=== PATIENT | female | born 1985 | race Caucasian/White ===

== ENCOUNTER 2016-07-23 09:24 | Emergency (ER) | payer OTHER ==
[2016-07-23 09:31] VITALS: RESP 18
--- NOTE | 2016-07-23 11:00 | ED ---
General Adult HPI - General Chief complaint: Psychiatric Symptoms Stated complaint: Mental health Time Seen by Provider: 07/23/16 10:36 Source: patient, RN notes reviewed Mode of arrival: ambulatory Limitations: no limitations - History of Present Illness Initial comments: Patient is a pleasant 30-year-old female presenting to the emergency Department with a pressure. Patient states she is chronically depressed. Patient states yesterday she did have some suicidal thoughts and did abrade her left wrist with a X Cutter. Last tetanus immunization was around 7 years. Patient denies any suicidal ideation at this time. No homicidal thoughts. No hallucinations. No alcohol use. No street drug use however patient has used marijuana in the past. - Related Data Home Medications Medication Instructions Recorded Confirmed Dextroamphetamine/Amphetamine 20 mg PO BID 01/10/16 07/23/16 [Adderall] Ibuprofen [Motrin] 800 mg PO Q6H PRN 01/10/16 07/23/16 Medroxyprogesterone Acetate 150 mg IM Q90D 01/10/16 07/23/16 [Depo-Provera] ARIPiprazole [Abilify] 5 mg PO HS 07/23/16 07/23/16 Venlafaxine HCl [Effexor XR] 150 mg PO HS 07/23/16 07/23/16 Allergies Allergy/AdvReac Type Severity Reaction Status Date / Time amoxicillin Allergy Unknown Verified 07/23/16 09:55 sulfamethoxazole Allergy Unknown Verified 07/23/16 09:55 [From Bactrim] trimethoprim [From Bactrim] Allergy Unknown Verified 07/23/16 09:55 Review of Systems ROS Statement: Those systems with pertinent positive or pertinent negative responses have been documented in the HPI. ROS Other: All systems not noted in ROS Statement are negative. Constitutional: Denies: fever Eyes: Denies: eye pain ENT: Denies: ear pain Respiratory: Denies: dyspnea Cardiovascular: Denies: chest pain Endocrine: Denies: fatigue Gastrointestinal: Denies: abdominal pain Genitourinary: Denies: dysuria Musculoskeletal: Denies: back pain Skin: Denies: rash Psychiatric: Reports: depression Past Medical History Past Medical History: Asthma History of Any Multi-Drug Resistant Organisms: None Reported Past Surgical History: Cholecystectomy Past Psychological History: Anxiety, Depression Smoking Status: Current every day smoker Past Alcohol Use History: None Reported Past Drug Use History: Marijuana General Exam Limitations: no limitations General appearance: alert, in no apparent distress Head exam: Present: atraumatic Eye exam: Present: normal appearance, PERRL ENT exam: Present: normal oropharynx Neck exam: Present: normal inspection Respiratory exam: Present: normal lung sounds bilaterally Cardiovascular Exam: Present: regular rate, normal rhythm GI/Abdominal exam: Present: soft. Absent: tenderness Extremities exam: Present: other (Left wrist abrasions) Neurological exam: Present: alert Psychiatric exam: Present: depressed Skin exam: Present: abrasion (Left wrist) Course Vital Signs 07/23/16 09:28 Temperature 98.2 F Pulse Rate 79 Respiratory 18 Rate Blood Pressure 126/90 O2 Sat by Pulse 100 Oximetry Medical Decision Making - Medical Decision Making Patient was seen by mental health services who did set up outpatient follow-up and recommends discharge. Patient does contract for safety and denies suicidal ideation at this time. Disposition Clinical Impression: Depression Disposition: HOME SELF-CARE Condition: Stable Instructions: Depression (ED), Suicide Prevention for Adults (ED) Additional Instructions: Please follow-up with your doctor in the next day or 2 for recheck. Please follow-up tomorrow for counseling as planned. Return for thoughts of self-harm , worsening symptoms or other concerns. Referrals: Hair Amaro Jr, DO [Primary Care Provider] - 1-2 days
[2016-07-23 13:21] VITALS: BP 128/78; PULSE 80; TEMP 98.6
== END 2016-07-23 13:20 | disposition home or self-care (01) ==
LOC: EC 09:24
DX: F32.9 Major depressive disorder, single episode, unspecified (principal); S60.812A Abrasion of left wrist, initial encounter; F41.9 Anxiety disorder, unspecified; F17.200 Nicotine dependence, unspecified, uncomplicated; Z79.3 Long term (current) use of hormonal contraceptives; Z79.899 Other long term (current) drug therapy; Z88.0 Allergy status to penicillin; Z88.1 Allergy status to other antibiotic agents; X78.8XXA Intentional self-harm by other sharp object, initial encounter
CPT/HCPCS: 82075; 99284

== ENCOUNTER 2017-03-02 21:13 | Emergency (ER) | payer BC, OTHER ==
[2017-03-02 21:43] LABS: Basophils # (A) 0.1 k/uL (0-0.2); Basophils % (A) 1 %; CH 30.2; CHCM 32.7; Eosinophils # (A) 0.3 k/uL (0-0.7); Eosinophils % (A) 3 %; HCT 44.5 % (34.0-46.0); HGB 14.8 gm/dL (11.4-16.0); Luc % (Auto) 1; Lymphocytes # (A) 2.6 k/uL (1.0-4.8); Lymphocytes % (A) 32 %; MCH 30.9 pg (25.0-35.0); MCHC 33.3 g/dL (31.0-37.0); MCV 92.7 fL (80.0-100.0); Monocytes # (A) 0.4 k/uL (0-1.0); Monocytes % (A) 5 %; Neutrophils # (A) 4.8 k/uL (1.3-7.7); Neutrophils % (A) 59 %; RDW 13.3 % (11.5-15.5); WBC 8.2 k/uL (3.8-10.6); WBC (Perox) 8.42
--- NOTE | 2017-03-02 21:54 | ED ---
ENT HPI - General Chief complaint: ENT Stated complaint: Neck Pain/Lump Time Seen by Provider: 03/02/17 21:19 Source: patient, RN notes reviewed Mode of arrival: ambulatory Limitations: no limitations - History of Present Illness Initial comments: This a 31-year-old female presents emergency Department chief complaint of lump on the left side of her neck towards anterior portion. Patient states that this isn't present last 3 days and is painful. She states that is not inhibiting her swelling states it is sore when she swallows. She states it fell more painful and then the lymph node that she's felt the past. She states that she does have a history of mono. Denies any thyroid nodules or thyroid dysfunction. Patient denies headache, dizziness states that she's been exhibiting severe body aches. Patient denies any known fever states that she felt warm and cold. Patient denies any abdominal discomfort denies nausea or constipation. - Related Data Home Medications Medication Instructions Recorded Confirmed Dextroamphetamine/Amphetamine 20 mg PO BID 01/10/16 07/23/16 [Adderall] Ibuprofen [Motrin] 800 mg PO Q6H PRN 01/10/16 07/23/16 Medroxyprogesterone Acetate 150 mg IM Q90D 01/10/16 07/23/16 [Depo-Provera] ARIPiprazole [Abilify] 5 mg PO HS 07/23/16 07/23/16 Venlafaxine HCl [Effexor XR] 150 mg PO HS 07/23/16 07/23/16 Previous Rx's Medication Instructions Recorded Clindamycin HCl 300 mg PO Q6HR #40 cap 03/02/17 Allergies Allergy/AdvReac Type Severity Reaction Status Date / Time amoxicillin Allergy Unknown Verified 07/23/16 09:55 sulfamethoxazole Allergy Unknown Verified 07/23/16 09:55 [From Bactrim] trimethoprim [From Bactrim] Allergy Unknown Verified 07/23/16 09:55 Review of Systems ROS Statement: Those systems with pertinent positive or pertinent negative responses have been documented in the HPI. ROS Other: All systems not noted in ROS Statement are negative. Past Medical History Past Medical History: Asthma History of Any Multi-Drug Resistant Organisms: None Reported Past Surgical History: Cholecystectomy Past Psychological History: Anxiety, Depression Smoking Status: Current every day smoker Past Alcohol Use History: None Reported Past Drug Use History: Marijuana General Exam Limitations: no limitations General appearance: alert, in no apparent distress Head exam: Present: atraumatic, normocephalic, normal inspection Eye exam: Present: normal appearance, PERRL, EOMI. Absent: scleral icterus, conjunctival injection, periorbital swelling ENT exam: Present: normal exam, normal oropharynx, mucous membranes moist, TM's normal bilaterally, normal external ear exam Neck exam: Present: tenderness, full ROM. Absent: normal inspection (Small nodular type structure just superior to the thyroid is mildly tender with palpation), meningismus, lymphadenopathy Respiratory exam: Present: normal lung sounds bilaterally. Absent: respiratory distress, wheezes, rales, rhonchi, stridor Cardiovascular Exam: Present: regular rate, normal rhythm, normal heart sounds. Absent: systolic murmur, diastolic murmur, rubs, gallop, clicks Course Vital Signs 03/02/17 21:14 Temperature 97.3 F L Pulse Rate 65 Respiratory 16 Rate Blood Pressure 123/85 O2 Sat by Pulse 100 Oximetry Medical Decision Making - Medical Decision Making 31-year-old female was from for sore throat. Patient has a cystic structure possibly thyroglossal cyst. Patient states may have some viral infection less likely bacterial though given her symptoms subjective fever bodyaches patient was started on clindamycin follow with ENT for possible infected thyroglossal cyst for further evaluation and possible needle aspiration. Return parameters were discussed patient agrees to plan LOTIONS were answered as best of my ability - Lab Data Result diagrams: 03/02/17 21:30 03/02/17 21:30 Lab Results 03/02/17 03/02/17 03/02/17 Range/Units 21:30 21:30 21:30 WBC 8.2 (3.8-10.6) k/uL RBC 4.80 (3.80-5.40) m/uL Hgb 14.8 (11.4-16.0) gm/dL Hct 44.5 (34.0-46.0) % MCV 92.7 (80.0-100.0) fL MCH 30.9 (25.0-35.0) pg MCHC 33.3 (31.0-37.0) g/dL RDW 13.3 (11.5-15.5) % Plt Count 174 (150-450) k/uL Neutrophils % 59 % Lymphocytes % 32 % Monocytes % 5 % Eosinophils % 3 % Basophils % 1 % Neutrophils # 4.8 (1.3-7.7) k/uL Lymphocytes # 2.6 (1.0-4.8) k/uL Monocytes # 0.4 (0-1.0) k/uL Eosinophils # 0.3 (0-0.7) k/uL Basophils # 0.1 (0-0.2) k/uL Sodium 138 (137-145) mmol/L Potassium 4.0 (3.5-5.1) mmol/L Chloride 106 (98-107) mmol/L Carbon Dioxide 25 (22-30) mmol/L Anion Gap 7 mmol/L BUN 9 (7-17) mg/dL Creatinine 0.70 (0.52-1.04) mg/dL Est GFR (MDRD) Af Amer >60 (>60 ml/min/1.73 sqM) Est GFR (MDRD) Non-Af >60 (>60 ml/min/1.73 sqM) Glucose 90 (74-99) mg/dL Calcium 9.1 (8.4-10.2) mg/dL Heterophile Antibody Negative (Negative) Group A Strep Rapid (Negative) 03/02/17 Range/Units 21:30 WBC (3.8-10.6) k/uL RBC (3.80-5.40) m/uL Hgb (11.4-16.0) gm/dL Hct (34.0-46.0) % MCV (80.0-100.0) fL MCH (25.0-35.0) pg MCHC (31.0-37.0) g/dL RDW (11.5-15.5) % Plt Count (150-450) k/uL Neutrophils % % Lymphocytes % % Monocytes % % Eosinophils % % Basophils % % Neutrophils # (1.3-7.7) k/uL Lymphocytes # (1.0-4.8) k/uL Monocytes # (0-1.0) k/uL Eosinophils # (0-0.7) k/uL Basophils # (0-0.2) k/uL Sodium (137-145) mmol/L Potassium (3.5-5.1) mmol/L Chloride (98-107) mmol/L Carbon Dioxide (22-30) mmol/L Anion Gap mmol/L BUN (7-17) mg/dL Creatinine (0.52-1.04) mg/dL Est GFR (MDRD) Af Amer (>60 ml/min/1.73 sqM) Est GFR (MDRD) Non-Af (>60 ml/min/1.73 sqM) Glucose (74-99) mg/dL Calcium (8.4-10.2) mg/dL Heterophile Antibody (Negative) Group A Strep Rapid Negative (Negative) Disposition Clinical Impression: Cyst of neck Disposition: HOME SELF-CARE Condition: Stable Instructions: Cyst (ED) Additional Instructions: Please follow up with ENT, and primary care physician. Please return to the Emergency Department if symptoms worsen or any other concerns. Prescriptions: Clindamycin HCl 300 mg PO Q6HR #40 cap Referrals: Hair Amaro Jr, DO [Primary Care Provider] - 1-2 days Kalpesh Broussard DO [Doctor of Osteopathic Medicine] - 1-2 days Time of Disposition: 22:29
[2017-03-02 22:05] LABS: Anion Gap 7 mmol/L; Blood Urea Nitrogen 9 mg/dL (7-17); Calcium 9.1 mg/dL (8.4-10.2); Carbon Dioxide 25 mmol/L (22-30); Chloride 106 mmol/L (98-107); Glucose 90 mg/dL (74-99); Non-African American GFR(MDRD) >60 (>60 ml/min/1.73 sqM); Sodium 138 mmol/L (137-145)
--- NOTE | 2017-03-02 22:11 | US ---
EXAMINATION TYPE: US thyroid st tissue head/neck DATE OF EXAM: 03/02/2017 COMPARISON: NONE CLINICAL HISTORY: Pain. The midline neck was scanned and there is an elongated oval-shaped 2.4 x 1.1 cm cystic mass. This aaron ears bilobed. The remainder of the exam is unremarkable. CONCLUSION: Submandibular oval-shaped cystic mass. I did not examine this patient. The appearance is nonspecific. I would consider the possibility of a thyroglossal duct cyst. Abscess, hematoma, seroma, necrotic ly mph node is in the differential diagnosis. Thyroid gland was not evaluated for this exam.
[2017-03-02] MEDS ORDERED: CLINDAMYCIN 150 MG CAP PO STA (22:25)
[2017-03-02 23:15] VITALS: BP 123/90; PULSE 69; RESP 18; TEMP 97.8
== END 2017-03-02 22:35 | disposition home or self-care (01) ==
LOC: EC 21:13
DX: M53.82 Other specified dorsopathies, cervical region (principal); F41.9 Anxiety disorder, unspecified; F32.9 Major depressive disorder, single episode, unspecified; F17.200 Nicotine dependence, unspecified, uncomplicated; Z88.0 Allergy status to penicillin; Z88.1 Allergy status to other antibiotic agents; Z79.890 Hormone replacement therapy; Z79.899 Other long term (current) drug therapy
CPT/HCPCS: 36415; 76536; 80048; 84443; 85025; 86308; 87081; 87430; 99284

== ENCOUNTER 2017-04-04 17:59 | Emergency (ER) | payer BC ==
--- NOTE | 2017-04-04 18:42 | ED ---
General Adult HPI - General Chief complaint: Back Pain/Injury Stated complaint: back pain Time Seen by Provider: 04/04/17 18:21 Source: patient, RN notes reviewed Mode of arrival: wheelchair Limitations: no limitations - History of Present Illness Initial comments: Chief complaint and history of present illness is a 31-year-old female with a complaint of having awakened this morning with discomfort in the right sciatic distribution goes from her right lateral paralumbar region to her upper posterior thigh. Discomfort prevents her from walking normally. She is able to have urination. No bowel movement today. Patient also presents with a fever. Patient did not get a flu shot this year. Was having had a mild headache yesterday's mild rash on her neck. - Related Data Home Medications Medication Instructions Recorded Confirmed Dextroamphetamine/Amphetamine 20 mg PO TID 01/10/16 04/04/17 [Adderall] Ibuprofen [Motrin] 800 mg PO Q6H PRN 01/10/16 04/04/17 Albuterol Nebulized [Ventolin 2.5 mg INHALATION RT-Q6H PRN 04/04/17 04/04/17 Nebulized] Previous Rx's Medication Instructions Recorded methylPREDNISolone Dose Pack 4 mg PO DIRECTED #21 package 04/04/17 [Medrol Dose Pack] Allergies Allergy/AdvReac Type Severity Reaction Status Date / Time amoxicillin Allergy Unknown Verified 04/04/17 18:39 sulfamethoxazole Allergy Unknown Verified 04/04/17 18:39 [From Bactrim] trimethoprim [From Bactrim] Allergy Unknown Verified 04/04/17 18:39 Review of Systems ROS Statement: Those systems with pertinent positive or pertinent negative responses have been documented in the HPI. Review of systems. Mild headache yesterday. No visual acuity changes, no sore throat. No chest pain shortness of breath or cough. No abdominal pain no nausea vomiting or diarrhea. She has a mild right sciatic distribution discomfort that starts in the right paralumbar region stops at the top of the posterior right thigh area. No rash noted. All systems are reviewed. Past medical problems significant for asthma, and a thyroglossal duct cyst which is to be removed to make several weeks. Surgeries cholecystectomy. Family history Crohn's disease and thyroid cancer. Patient has ALLERGIES to penicillin and sulfa which causes hives. She does smoke strongly encouraged stop drink alcohol socially. ROS Other: All systems not noted in ROS Statement are negative. Past Medical History Past Medical History: Asthma History of Any Multi-Drug Resistant Organisms: None Reported Past Surgical History: Cholecystectomy Past Psychological History: Anxiety, Depression Smoking Status: Current every day smoker Past Alcohol Use History: None Reported Past Drug Use History: Marijuana General Exam - General Exam Comments Initial Comments: General: The patient is awake and alert, planes of right sciatic distribution discomfort starts in the right para lumbar region goes to the top of her right posterior thigh through the buttock area. Patient reports she did fall asleep and fell in a recliner last night and an unusual position. But the discomfort persisted all day. Vital signs shows temperature 100.4. Patient a mild headache yesterday. The patient denies sore throat she had a runny nose. Mild rash on her neck. Patient did negative flu shot this year. Pulses 87 respiratory rate 16 pulse ox 90% room air blood pressure 124/78 Eye: Pupils are equal, round and reactive to light, extra-ocular movements are intact ; there is normal conjunctiva bilaterally. No signs of icterus. Ears, nose, mouth and throat: Mild redness in the posterior pharynx. Naselle tongue. Positive for circumoral pallor. Mild rash on her neck. Neck: The neck is supple, no anterior cervical lymphadenopathy. Cardiovascular: There is a regular rate and rhythm. No murmur, rub or gallop is appreciated. Respiratory: Lungs are clear to auscultation, respirations are non-labored, breath sounds are equal. No wheezes, stridor, rales, or rhonchi. Gastrointestinal: Soft, non-distended, non-tender abdomen without masses or organomegaly noted. There is no rebound or guarding present. No CVA tenderness. Bowel sounds are unremarkable. Back: Right paralumbar pain starts high in the right buttock area radiates down the buttocks to the top of the right posterior thigh. No direct injury. No foot drop. She is able to urinate without difficulty. No complaint of muscle weakness. Musculoskeletal: Normal ROM, no tenderness, There is no pedal edema. There is no calf tenderness or swelling. Sensation intact. Pulses equal bilaterally 2+. Neurological: Mild proximal right sciatic distribution discomfort. Skin: Skin is warm and dry and no rashes or lesions are noted. Limitations: no limitations Course Vital Signs 04/04/17 04/04/17 18:04 19:40 Temperature 100.4 F H 98.2 F Pulse Rate 87 70 Respiratory 16 18 Rate Blood Pressure 124/78 116/62 O2 Sat by Pulse 98 100 Oximetry Medical Decision Making - Medical Decision Making X-rays of the lumbosacral spine were done and reviewed by radiologist his final impression is no acute abnormality. Level convex curvature of the spine could be positional or could be due to scoliosis with rotational component. As read by Dr. Thurman Rapid strep test negative, influenza AB reported to be negative. We discussed musculoskeletal strain and right-sided sciatica. The patient will be placed on a Medrol Dosepak. Advised to take ibuprofen for pain and fever. We also discussed viral syndrome. - Lab Data Lab Results 04/04/17 04/04/17 Range/Units 18:43 18:43 Influenza Type A RNA Not Detected (Not Detectd) Influenza Type B (PCR) Not Detected (Not Detectd) Group A Strep Rapid Negative (Negative) Disposition Clinical Impression: Acute viral syndrome, Lumbosacral strain Disposition: HOME SELF-CARE Condition: Fair Instructions: Acute Low Back Pain (ED) Additional Instructions: Do gentle stretching. Take a Medrol Dosepak for muscular discomfort. Use ibuprofen for discomfort. Report changes to her family doctor. Prescriptions: methylPREDNISolone Dose Pack [Medrol Dose Pack] 4 mg PO DIRECTED #21 package Referrals: Hair Amaro Jr, [Primary Care Provider] - 1-2 days Time of Disposition: 20:38
[2017-04-04 19:41] VITALS: BP 116/62; PULSE 70; RESP 18; TEMP 98.2
--- NOTE | 2017-04-04 19:57 | XR ---
Exam: Lumbosacral spine complete TECHNIQUE: 6 views lumbosacral spine were obtained. HISTORY: Back pain FINDINGS: No acute fracture subluxation is identified. There is levoconvex curvature of the spine which could b e due to poor positioning. Surgical clips are identified in the gallbladder fossa. Intervertebral dis c space height is maintained. Soft tissue structures otherwise unremarkable. IMPRESSION: No acute abnormality. Levoconvex curvature of the spine could be positional or could be due to scolio sis with rotational component.
[2017-04-04] MEDS ORDERED: predniSONE 20 MG TAB PO STA (20:24)
== END 2017-04-04 20:43 | disposition home or self-care (01) ==
LOC: EC 17:59
DX: S39.012A Strain of muscle, fascia and tendon of lower back, initial encounter (principal); B34.9 Viral infection, unspecified; F32.9 Major depressive disorder, single episode, unspecified; F41.9 Anxiety disorder, unspecified; F17.200 Nicotine dependence, unspecified, uncomplicated; Z79.899 Other long term (current) drug therapy; Z88.0 Allergy status to penicillin; Z88.2 Allergy status to sulfonamides
CPT/HCPCS: 87081; 87430; 87502; 72110; 99283; J7512

== ENCOUNTER 2017-05-06 12:42 | Day surgery (SDC) | payer BC, OTHER ==
[2017-04-29 11:27] VITALS: BMI 23.8
[~2017-05-06 12:42] MED LIST: CLINDAMYCIN 600 MG in DEXTROSE 5% IN WATER 50 ML IVPB ONE; DEXAMETHASONE SOD PHOSPHATE 4 MG/ML 1 ML VIAL IV ONE; FAMOTIDINE 20 MG/2 ML VIAL IV ONE; LACTATED RINGERS 1,000 ML IV SCH; LIDOCAINE 1% 20 ML VIAL (10MG/ML) FOR IV START INTRADERMA PRN; fentaNYL (PF) 50 MCG/ML 2 ML AMP IV PRN
[2017-05-06] MEDS ORDERED: SCOPOLAMINE 1.5MG/72HR PATCH TRANSDERM ONE (13:39)
[2017-05-06] MEDS ORDERED: ONDANSETRON 4 MG/2 ML VIAL IVP ONE (13:40)
[2017-05-06] MEDS ORDERED: DEXAMETHASONE SOD PHOSPHATE 10 MG/ML 1 ML VIAL IV ONE (13:40)
[2017-05-06] MEDS ORDERED: MIDAZOLAM 2 MG/2 ML VIAL IVP ONE (13:59)
[2017-05-06] MEDS ORDERED: PROPOFOL 10 MG/ML 20 ML VIAL IV ONE (14:22)
[2017-05-06] MEDS ORDERED: fentaNYL (PF) 50 MCG/ML 2 ML AMP ONE (14:22)
[2017-05-06] MEDS ORDERED: MIDAZOLAM 2 MG/2 ML VIAL ONE (14:22)
[2017-05-06] MEDS ORDERED: SUCCINYLCHOLINE CHLORIDE 100 MG/5 ML SYR IV ONE (14:22)
[2017-05-06] MEDS ORDERED: LIDOCAINE 1% INJ 10MG/ML (20 ML MDV) ONE (14:22)
[2017-05-06] MEDS ORDERED: LIDOCAINE-EPINEPHRINE (PF) 5 ML AMPUL SQ ONE ×2 (14:46)
--- NOTE | 2017-05-06 15:48 | P.OP ---
Date of Procedure: 05/06/17 Preoperative Diagnosis: Thyroglossal duct cyst Postoperative Diagnosis: Same Procedure(s) Performed: Excision thyroglossal duct cyst including the Vida procedure Anesthesia: GAYLEA Surgeon: Shashi Rosario Estimated Blood Loss (ml): 2 Pathology: other (Thyroglossal duct cyst including midportion of hyoid bone) Condition: stable Disposition: PACU Indications for Procedure: This is a 31-year-old white female who had acute onset of a midline neck mass. She's had workup including computed tomography scan which was consistent with a thyroglossal duct cyst. Operative Findings: Approximate 2 cm midline neck mass just inferior to the hyoid bone which tracked superiorly through the posterior aspect of the hyoid bone and ended with a blind tract this is excised grossly entirely. Description of Procedure: The patient was brought in the operative suite and placed in a supine position. The patient underwent induction of general anesthesia with oral endotracheal intubation without difficulty. The patient was prepped and draped in usual aseptic fashion. Patient positioned with a head donut and shoulder roll prior to the prep. 1% lidocaine with 1-100,000 epinephrine was infused subcutaneously in field block fashion over the point of incision. A transverse cervical incision was made directly over the mass. This is carried sharply through the skin and subcutaneous tissue down to the platysma layer which also was divided. The cyst itself was located between the strap muscles which were divided in the midline. This was further dissected deeply and superiorly to follow the tract. The cyst fluid was drained purposely in order to obtain exposure to the hyoid bone. The midportion of the hyoid bone was then exposed and removed with bone-biting or avoiding the lateral aspects and the hypoglossal nerve. The tract continued superiorly and was followed until it ended and at this point this was 3-0 silk suture. The wound was copiously irrigated sterile normal saline and no further remnants were noted grossly area in excellent hemostasis was noted. The strap muscles were reapproximated with 4 -0 Vicryl suture and the platysma and subcutaneous layers were closed with inverted interrupted 40 and then 5-0 Vicryl suture. Skin closed with running locking 5-0 Prolene suture. Bacitracin ointment sterile dressing were placed. The patient was allowed to emerge from general anesthesia tolerated procedure well was extubated in the operating suite and transferred to postop recovery area in satisfactory condition.
[2017-05-06 15:58] VITALS: TEMP 97.9
[2017-05-06] MEDS: MEPERIDINE 50 MG/ML SYRINGE IVP ONE ×4 (16:01→16:35)
[2017-05-06] MEDS ORDERED: diphenhydrAMINE 50 MG/ML 1 ML VIAL IVP ONE (16:25)
[2017-05-06 16:41] VITALS: RESP 18
[2017-05-06] MEDS ORDERED: LACTATED RINGERS 1,000 ML IV ONE (16:47)
[2017-05-06 17:38] VITALS: BP 115/78; PULSE 60
== END 2017-05-06 18:10 | disposition home or self-care (01) ==
LOC: OR 12:42
PROVIDERS: ATTEND Otolaryngology
DX: Q89.2 Congenital malformations of other endocrine glands (principal); J45.909 Unspecified asthma, uncomplicated; F32.9 Major depressive disorder, single episode, unspecified; N30.10 Interstitial cystitis (chronic) without hematuria; K58.9 Irritable bowel syndrome, unspecified; F43.10 Post-traumatic stress disorder, unspecified; G47.419 Narcolepsy without cataplexy; Z79.1 Long term (current) use of non-steroidal anti-inflammatories (NSAID); Z79.899 Other long term (current) drug therapy; Z88.1 Allergy status to other antibiotic agents; Z91.040 Latex allergy status; Z88.2 Allergy status to sulfonamides; Z91.048 Other nonmedicinal substance allergy status; Z88.8 Allergy status to other drugs, medicaments and biological substances; F17.210 Nicotine dependence, cigarettes, uncomplicated
CPT/HCPCS: 81025; 60280; J2250; J1200; J1100; J2175; J2405; J2001; J3010; J0330; J2704; 88305

== ENCOUNTER → 2020-08-03 | Outpatient (CLI) | payer OTHER ==
--- NOTE | 2020-08-03 11:53 | US ---
EXAMINATION TYPE: US liver DATE OF EXAM: 08/03/2020 COMPARISON: NONE CLINICAL HISTORY: 34-year-old female E80.6 hyperbilirubinemia. TECHNIQUE: Multiple sonographic images of the right upper quadrant are obtained. FINDINGS: EXAM MEASUREMENTS: Liver Length: 13.1 cm Gallbladder is: Surgically absent CBD: 0.7 cm Right Kidney: 10.5 x 3.4 x 4.4 cm Pancreas: Tail and some of the pancreatic body is obscured by overlying bowel gas Liver: wnl Gallbladder: Surgically absent CBD: Mildly dilated but acceptable given postcholecystectomy status. Right Kidney: wnl IMPRESSION: Bile duct mildly dilated at 7 mm. This may be acceptable given postcholecystectomy status. Correlate with alkaline phosphatase and bilirubin levels.
== END | disposition home or self-care (01) ==
LOC: RADUSWWP 06:52
PROVIDERS: ATTEND Internal Medicine
DX: K83.8 Other specified diseases of biliary tract (principal)
CPT/HCPCS: 76705

== ENCOUNTER → 2020-08-03 | Outpatient (CLI) | payer OTHER ==
[2020-08-04 01:50] LABS: African American GFR (CKD) 98.1 (60.0-200.0); Albumin 4.6 g/dL (3.80-4.90); Anion Gap 11.6 mmol/L (4.00-12.00); BUN/Creat Ratio 12.22 Ratio (12.00-20.00); Bilirubin, Conjugated 0.2 mg/dL (0.20-0.40); Calcium 9.9 mg/dL (8.7-10.3); Carbon Dioxide 24.4 mmol/L (21.6-31.8); Chol/HDL Ratio 2.83; Globulin 2.3 g/dL (1.6-3.3); Non-African American GFR(CKD) 84.6 (60.0-200.0); Potassium 4.4 mmol/L (3.5-5.5); Total Bilirubin 0.6 mg/dL (0.3-1.2); Total Protein 6.9 g/dL (6.2-8.2)
[2020-08-04 09:17] LABS: Hepatitis A Antibody IgM Non-Reactive (Non-Reactive); Hepatitis B Core IgM Non-Reactive (Non-Reactive); Hepatitis B Surface Antigen Non-Reactive (Non-Reactive); Hepatitis C IgG Antibody Non-Reactive (Non-Reactive)
[2020-08-06 11:29] LABS: Ceruloplasmin 23.1 mg/dL (20.0-60.0)
== END | disposition home or self-care (01) ==
LOC: LABWHC1 07:20
PROVIDERS: ATTEND Internal Medicine
DX: E80.6 Other disorders of bilirubin metabolism (principal)
CPT/HCPCS: 36415; 76705; 80053; 80061; 80074; 82103; 82390; 82525; 83516; 83540; 83550; 86038; 86645; 86665

== ENCOUNTER → 2021-02-21 | Outpatient (CLI) | payer OTHER ==
--- NOTE | 2021-02-22 09:00 | XR ---
EXAMINATION TYPE: XR chest 2V DATE OF EXAM: 02/21/2021 COMPARISON: 01/19/2011 TECHNIQUE: PA and lateral views submitted. HISTORY: Shortness of breath FINDINGS: The lungs are clear and there is no pneumothorax, pleural effusion, or focal pneumonia. Heart size normal. No overt failure. Surgical clips in the abdomen. IMPRESSION: 1. No acute process.
== END | disposition home or self-care (01) ==
LOC: RADXRMAIN 17:14
PROVIDERS: ATTEND Internal Medicine
DX: J45.901 Unspecified asthma with (acute) exacerbation (principal)
CPT/HCPCS: 71046

== ENCOUNTER → 2021-03-16 | Outpatient (CLI) | payer OTHER ==
--- NOTE | 2021-03-17 02:31 | MR ---
EXAMINATION TYPE: MR brain/cspine wo/w DATE OF EXAM: 03/16/2021 COMPARISON: HISTORY: Optic neuritis, evaluate for MS. CONTRAST: Standard multiplanar, multisequence MRI departmental protocol images were obtained without contrast a nd with 8 mL intravenous Gadavist gadolinium contrast. Ventricles have normal size. There is no mass effect nor midline shift. There is no sign of intracran ial hemorrhage. King-white matter structures have normal signal pattern. There is no evidence of cere bral edema. There is no evidence of orbital mass. There is no retro-orbital mass. Optic nerves are sy mmetric. Brainstem is intact. Corpus callosum appears normal. Sella turcica is normal. There is normal enhancement of the venous sinuses. There is no pathologic enhancement. Cervical vertebra have normal spacing and alignment. Posterior elements are intact. Cervical spinal c ord has normal signal pattern. There is no edema. There is no spinal stenosis. There is no compressio n fracture. Contrast images show no pathologic enhancement in the cervical spine. IMPRESSION: Normal MR scan of the brain. Normal MR scan of the cervical spine. No evidence of demyelinating disease.
== END | disposition home or self-care (01) ==
LOC: RADMRIMAIN 12:53
PROVIDERS: ATTEND Internal Medicine
DX: H46.9 Unspecified optic neuritis (principal)
CPT/HCPCS: 70553; 72156; A9585

== ENCOUNTER 2021-05-17 13:31 | Emergency (ER) | payer OTHER ==
--- NOTE | 2021-05-17 14:12 | ED ---
General Adult HPI - General Chief complaint: Abdominal Pain Stated complaint: Abd Pain-sent by Time Seen by Provider: 05/17/21 13:42 Source: patient, RN notes reviewed Mode of arrival: ambulatory Limitations: no limitations - History of Present Illness Initial comments: 35-year-old female presents to the emergency department for evaluation of abdominal pain. Patient states she was seen by her PCP recently for missed menses and breast tenderness, but now has pain in the right lower quadrant accompanied by nausea. Patient describes the discomfort as a burning sensation that is worsened with palpation, though not so severe that she requires anything to treat the pain. Nausea has no aggravating or alleviating factors. Does complain of urinary frequency. Denies fever, chills, shortness of breath, chest pain, vomiting, diarrhea, constipation, dysuria, hematuria, or other known sick contacts. Last menstrual period 03/20/2021. - Related Data Home Medications Medication Instructions Recorded Confirmed Albuterol Nebulized [Ventolin 2.5 mg INHALATION RT-Q6H PRN 04/04/17 05/17/21 Nebulized] Albuterol Sulfate [Proair Hfa] 2 puff INHALATION RT-Q4H PRN 05/17/21 05/17/21 Cetirizine HCl [Zyrtec] 10 mg PO DAILY 05/17/21 05/17/21 Dextroamphetamine/Amphetamine 10 mg PO DAILY 05/17/21 05/17/21 [Adderall] EPINEPHrine (Auto Inject) [Epipen] 0.3 mg IM ONCE PRN 05/17/21 05/17/21 Fluticasone/Salmeterol [Advair 1 puff INHALATION RT-BID 05/17/21 05/17/21 100-50 Diskus] Allergies Allergy/AdvReac Type Severity Reaction Status Date / Time adhesive tape Allergy Rash/Hives Verified 05/17/21 14:26 latex Allergy Rash/Hives Verified 05/17/21 14:26 amoxicillin AdvReac Nausea & Verified 05/17/21 14:26 Vomiting & Diarrhea hydromorphone [From Dilaudid] AdvReac Itching,states Verified 05/17/21 14:26 "sensitive to dilaudid" sulfamethoxazole AdvReac Nausea & Verified 05/17/21 14:26 [From Bactrim] Vomiting & Diarrhea trimethoprim [From Bactrim] AdvReac Nausea & Verified 05/17/21 14:26 Vomiting & Diarrhea Review of Systems ROS Statement: Those systems with pertinent positive or pertinent negative responses have been documented in the HPI. ROS Other: All systems not noted in ROS Statement are negative. Past Medical History Past Medical History: Asthma History of Any Multi-Drug Resistant Organisms: None Reported Past Surgical History: Cholecystectomy Past Psychological History: Anxiety, Depression Smoking Status: Former smoker Past Alcohol Use History: Occasional Past Drug Use History: None Reported General Exam Limitations: no limitations General appearance: alert, in no apparent distress, other (This is a well- developed, well-nourished female in no acute distress. Initial temperature 98.7, pulse 80, respirations 18, blood pressure 146/84, pulse ox 98% on room air.) ENT exam: Present: normal exam, normal oropharynx, mucous membranes moist Respiratory exam: Present: normal lung sounds bilaterally, chest wall tenderness (Right upper outer breast tenderness upon palpation; no palpable nodules noted). Absent: respiratory distress, wheezes, rales, rhonchi, stridor Cardiovascular Exam: Present: regular rate, normal rhythm, normal heart sounds. Absent: systolic murmur, diastolic murmur, rubs, gallop, clicks GI/Abdominal exam: Present: soft, tenderness (Mild right lower quadrant abdominal tenderness upon palpation), normal bowel sounds. Absent: distended, guarding, rebound, rigid Back exam: Present: normal inspection. Absent: CVA tenderness (R), CVA tenderness (L) Neurological exam: Present: alert, oriented X3, normal gait Psychiatric exam: Present: normal affect, normal mood Skin exam: Present: warm, dry, intact, normal color. Absent: rash Course Vital Signs 05/17/21 05/17/21 05/17/21 13:38 16:00 17:44 Temperature 98.7 F 98.2 F Pulse Rate 80 78 72 Respiratory 18 20 18 Rate Blood Pressure 146/84 136/77 130/68 O2 Sat by Pulse 98 97 97 Oximetry Medical Decision Making - Medical Decision Making 35-year-old female with a past medical history of cholecystectomy and asthma presents to the emergency department for evaluation of right lower quadrant abdominal pain. Upon evaluation, patient is nontoxic, well-appearing, and in no acute distress. She is afebrile with stable vital signs. Declines pain med ication as discomfort is not that significant. Does report recent menstrual irregularity and breast tenderness for which she is scheduled to see her [employer]. Laboratory studies were obtained and are unremarkable. CT of the abdomen and pelvis showed a normal appendix, possible nonspecific enterocolitis, and a 2cm cyst of the right ovary. Findings were discussed with patient. She will be discharged home to follow-up with her [employer] as scheduled. Return parameters were discussed in detail. Patient verbalizes understanding and agrees with this plan. This patient's care was discussed with my attending Dr. Hatch. - Lab Data Result diagrams: 05/17/21 14:25 05/17/21 14:25 Lab Results 05/17/21 05/17/21 05/17/21 Range/Units 14:25 14:25 14:25 WBC 11.3 H (3.8-10.6) k/uL RBC 4.20 (3.80-5.40) m/uL Hgb 13.2 (11.4-16.0) gm/dL Hct 39.2 (34.0-46.0) % MCV 93.2 (80.0-100.0) fL MCH 31.3 (25.0-35.0) pg MCHC 33.6 (31.0-37.0) g/dL RDW 11.9 (11.5-15.5) % Plt Count 198 (150-450) k/uL MPV 7.9 Neutrophils % 72 % Lymphocytes % 21 % Monocytes % 3 % Eosinophils % 2 % Basophils % 1 % Neutrophils # 8.1 H (1.3-7.7) k/uL Lymphocytes # 2.4 (1.0-4.8) k/uL Monocytes # 0.4 (0-1.0) k/uL Eosinophils # 0.2 (0-0.7) k/uL Basophils # 0.1 (0-0.2) k/uL Sodium 137 (137-145) mmol/L Potassium 4.3 (3.5-5.1) mmol/L Chloride 105 (98-107) mmol/L Carbon Dioxide 23 (22-30) mmol/L Anion Gap 9 mmol/L BUN 10 (7-17) mg/dL Creatinine 0.74 (0.52-1.04) mg/dL Est GFR (CKD-EPI)AfAm >90 (>60 ml/min/1.73 sqM) Est GFR (CKD-EPI)NonAf >90 (>60 ml/min/1.73 sqM) Glucose 97 (74-99) mg/dL Calcium 9.5 (8.4-10.2) mg/dL Total Bilirubin 1.4 H (0.2-1.3) mg/dL AST 21 (14-36) U/L ALT 14 (4-34) U/L Alkaline Phosphatase 46 (38-126) U/L Total Protein 7.2 (6.3-8.2) g/dL Albumin 4.3 (3.5-5.0) g/dL Lipase 38 (23-300) U/L HCG, Quant <2.4 mIU/mL Urine Color Colorless Urine Appearance Clear (Clear) Urine pH 6.0 (5.0-8.0) Ur Specific [place] 1.003 (1.001-1.035) Urine Protein Negative (Negative) Urine Glucose (UA) Negative (Negative) Urine Ketones Negative (Negative) Urine Blood Negative (Negative) Urine Nitrite Negative (Negative) Urine Bilirubin Negative (Negative) Urine Urobilinogen <2.0 (<2.0) mg/dL Ur Leukocyte Esterase Negative (Negative) Urine HCG, Qual (Not Detectd) 05/17/21 Range/Units 14:25 WBC (3.8-10.6) k/uL RBC (3.80-5.40) m/uL Hgb (11.4-16.0) gm/dL Hct (34.0-46.0) % MCV (80.0-100.0) fL MCH (25.0-35.0) pg MCHC (31.0-37.0) g/dL RDW (11.5-15.5) % Plt Count (150-450) k/uL MPV Neutrophils % % Lymphocytes % % Monocytes % % Eosinophils % % Basophils % % Neutrophils # (1.3-7.7) k/uL Lymphocytes # (1.0-4.8) k/uL Monocytes # (0-1.0) k/uL Eosinophils # (0-0.7) k/uL Basophils # (0-0.2) k/uL Sodium (137-145) mmol/L Potassium (3.5-5.1) mmol/L Chloride (98-107) mmol/L Carbon Dioxide (22-30) mmol/L Anion Gap mmol/L BUN (7-17) mg/dL Creatinine (0.52-1.04) mg/dL Est GFR (CKD-EPI)AfAm (>60 ml/min/1.73 sqM) Est GFR (CKD-EPI)NonAf (>60 ml/min/1.73 sqM) Glucose (74-99) mg/dL Calcium (8.4-10.2) mg/dL Total Bilirubin (0.2-1.3) mg/dL AST (14-36) U/L ALT (4-34) U/L Alkaline Phosphatase (38-126) U/L Total Protein (6.3-8.2) g/dL Albumin (3.5-5.0) g/dL Lipase (23-300) U/L HCG, Quant mIU/mL Urine Color Urine Appearance (Clear) Urine pH (5.0-8.0) Ur Specific [place] (1.001-1.035) Urine Protein (Negative) Urine Glucose (UA) (Negative) Urine Ketones (Negative) Urine Blood (Negative) Urine Nitrite (Negative) Urine Bilirubin (Negative) Urine Urobilinogen (<2.0) mg/dL Ur Leukocyte Esterase (Negative) Urine HCG, Qual Not Detected (Not Detectd) - Radiology Data Radiology results: report reviewed, image reviewed CT of the abdomen and pelvis with contrast was obtained. Report was reviewed in its entirety. Impression per Dr. Botello is 1. Normal appendix. 2. There may be mild fold thickening of left sided jejunal loops. There is also prominent fluid within small bowel loops in the pelvis and mild wall thickening of the mid to distal sigmoid colon. Correlate for possible nonspecific enterocolitis. 3. A 2 cm cyst of the right ovary with thin rim enhancement suggesting a recently ruptured follicle or corpus luteum. Follow-up pelvic ultrasound in 6-8 weeks to ensure involution. There is a 3.1 cm dominant follicle of the left ovary. 4. Trace cul-de-sac free fluid likely physiologic. Disposition Clinical Impression: Ovarian cyst, Abdominal pain Disposition: HOME SELF-CARE Condition: Stable Instructions (If sedation given, give patient instructions): Ovarian Cyst (ED), Acute Abdominal Pain (ED) Additional Instructions: Please keep follow up appointments that you are scheduled. Alternate Tylenol and Motrin as needed for pain or discomfort. Follow-up with your PCP for a recheck early next week. Return to the emergency department with any new, worsening, or concerning symptoms. Is patient prescribed a controlled substance at d/c from ED?: No Referrals: Irving Castro MD [Primary Care Provider] - 1-2 days Scooter Edwards MD [STAFF PHYSICIAN] - 1-2 days Time of Disposition: 17:10
[2021-05-17 14:38] LABS: Basophils # (A) 0.1 k/uL (0-0.2); Basophils % (A) 1 %; Eosinophils # (A) 0.2 k/uL (0-0.7); Eosinophils % (A) 2 %; HCT 39.2 % (34.0-46.0); HGB 13.2 gm/dL (11.4-16.0); Lymphocytes # (A) 2.4 k/uL (1.0-4.8); Lymphocytes % (A) 21 %; MCH 31.3 pg (25.0-35.0); MCHC 33.6 g/dL (31.0-37.0); MCV 93.2 fL (80.0-100.0); Mean Platelet Volume 7.9; Monocytes # (A) 0.4 k/uL (0-1.0); Monocytes % (A) 3 %; Neutrophils # (A) 8.1 k/uL (1.3-7.7); Neutrophils % (A) 72 %; Platelet Count 198 k/uL (150-450); RDW 11.9 % (11.5-15.5); WBC 11.3 k/uL (3.8-10.6)
[2021-05-17] MEDS: ONDANSETRON 4 MG/2 ML VIAL IVP STA (14:39)
[2021-05-17 14:40] LABS: Appearance,Urine Clear (Clear); Bilirubin,Urine Negative (Negative); Blood,Urine Negative (Negative); Color,Urine Colorless; Glucose,Urine (UA) Negative (Negative); Ketones,Urine Negative (Negative); Leukocyte Esterase,Urine Negative (Negative); Nitrite,Urine Negative (Negative); Protein,Urine Negative (Negative); Specific Gravity,Urine 1.003 (1.001-1.035); Urobilinogen,Urine <2.0 mg/dL (<2.0)
[2021-05-17] MEDS: SODIUM CHLORIDE 0.9% 1,000 ML IV STA (14:40)
[2021-05-17 14:48] LABS: ALT 14 U/L (4-34); AST 21 U/L (14-36); African American GFR (CKD) >90 (>60 ml/min/1.73 sqM); Albumin 4.3 g/dL (3.5-5.0); Alkaline Phosphatase 46 U/L (38-126); Anion Gap 9 mmol/L; Blood Urea Nitrogen 10 mg/dL (7-17); Calcium 9.5 mg/dL (8.4-10.2); Carbon Dioxide 23 mmol/L (22-30); Chloride 105 mmol/L (98-107); Glucose 97 mg/dL (74-99); Lipase 38 U/L (23-300); Non-African American GFR(CKD) >90 (>60 ml/min/1.73 sqM); Potassium 4.3 mmol/L (3.5-5.1); Sodium 137 mmol/L (137-145); Total Bilirubin 1.4 mg/dL (0.2-1.3); Total Protein 7.2 g/dL (6.3-8.2)
[2021-05-17 15:08] LABS: HCG,Quantitative Serum <2.4 mIU/mL
--- NOTE | 2021-05-17 16:11 | CT ---
EXAMINATION TYPE: CT abdomen pelvis w con DATE OF EXAM: 05/17/2021 COMPARISON: NONE HISTORY: 35-year-old female Right lower quadrant pain. TECHNIQUE: Contiguous axial scanning of the abdomen and pelvis following administration of 100 ml Iso melina 300 IV contrast. Delayed images through the kidneys and coronal/sagittal reconstructions perform ed. CT DLP: 720.8 mGycm Automated exposure control for dose reduction was used. FINDINGS: Heart normal size without pericardial effusion. Lung bases clear without pleural effusion. No focal liver lesion or biliary ductal dilatation. Portal venous system is patent. Cholecystectomy clips. Adrenal glands, kidneys, spleen, and pancreas within normal limits. There may be some mild fold thickening of multiple left-sided abdominal jejunal loops versus nondiste ntion. No mesenteric or retroperitoneal lymphadenopathy. Normal appendix seen on axial image 69 and 70 and coronal image 34. Mild stool burden. There may be mild wall thickening of the mid to distal sigmoid colon, axial image 65 and prominent fluid-filled small bowel loops in the pelvis. Bladder is nondistended. Uterus anteverted. 3.1 cm dominant follicle within the left ovary. There is a cyst within the right ovary with thin rim enhancement measuring 2.0 cm. Trace cul-de-sac free fluid is physiologic. No evident pelvic lymphadenopathy. Bones: No osseous destructive process. Slight levoconvex curvature of the lumbar spine. IMPRESSION: 1. NORMAL APPENDIX. 2. THERE MAY BE MILD FOLD THICKENING OF LEFT-SIDED JEJUNAL LOOPS. THERE IS ALSO PROMINENT FLUID WITHI N SMALL BOWEL LOOPS IN THE PELVIS AND MILD WALL THICKENING OF THE MID TO DISTAL SIGMOID COLON. CORREL ATE FOR POSSIBLE NONSPECIFIC ENTEROCOLITIS. 3. A 2.0 CM CYST OF THE RIGHT OVARY WITH THIN RIM ENHANCEMENT SUGGESTS A RECENTLY RUPTURED FOLLICLE O R CORPUS LUTEUM. FOLLOW-UP PELVIC ULTRASOUND IN 6-8 WEEKS TO ENSURE INVOLUTION. THERE IS A 3.1 CM DOM INANT FOLLICLE OF THE LEFT OVARY. 4. TRACE CUL-DE-SAC FREE FLUID LIKELY PHYSIOLOGIC.
[2021-05-17 17:45] VITALS: BP 130/68; PULSE 72; RESP 18; TEMP 98.2
== END 2021-05-17 17:40 | disposition home or self-care (01) ==
LOC: EC 13:31
DX: N83.201 Unspecified ovarian cyst, right side (principal); J45.909 Unspecified asthma, uncomplicated; Z87.891 Personal history of nicotine dependence; Z90.49 Acquired absence of other specified parts of digestive tract; Z91.09 Other allergy status, other than to drugs and biological substances; Z91.040 Latex allergy status; Z88.0 Allergy status to penicillin; Z88.5 Allergy status to narcotic agent; Z88.2 Allergy status to sulfonamides; Z79.51 Long term (current) use of inhaled steroids
CPT/HCPCS: 36415; 80053; 83690; 85025; 81003; 81025; 84702; 74177; 99284; 96374; 96361; J2405; Q9967

== ENCOUNTER → 2024-06-08 | Outpatient (CLI) | payer OTHER ==
--- NOTE | 2024-06-08 11:54 | XR ---
EXAMINATION TYPE: XR Hip Bilateral and AP pelvis DATE OF EXAM: 06/08/2024 COMPARISON: CT abdomen and pelvis one year earlier CLINICAL INDICATION: Female, 38 years old with history of M25.551 M25.552 Hip Pain; TECHNIQUE: A single AP view of the pelvis is obtained. Two views of the bilateral hips are obtained. FINDINGS: There is no acute fracture/dislocation evident in the pelvis or either hip. Mild axial nitza nt space loss and acetabular spurring of both hips is seen. Sacroiliac joints are symmetric and withi n normal limits. Pubic symphysis is intact. Overlying soft tissue is unremarkable. IMPRESSION: As above [facility], , 06/08/2024 11:51 AM
== END | disposition home or self-care (01) ==
LOC: RADXRMAIN 10:59
PROVIDERS: ATTEND Internal Medicine
DX: M25.751 Osteophyte, right hip (principal); M25.752 Osteophyte, left hip; M25.551 Pain in right hip; M25.552 Pain in left hip
CPT/HCPCS: 73521